=== PATIENT | female | born 1985 | race Caucasian/White ===

== ENCOUNTER 2017-03-17 05:14 | Emergency (ER) | payer OTHER ==
[~2017-03-17] VITALS: Ht 167.6 cm; Wt 63.5 kg
--- NOTE | 2017-03-17 05:20 | NUR ---
TO ROOM 3 FOR ER EVAL
[2017-03-17] MEDS ORDERED: SULFAMETH/TRIMETH 800/160 MG TABLET PO ONE (05:30)
--- NOTE | 2017-03-17 05:38 | NUR ---
PT Patient discharged to home in stable conditon. Written and verbal after care instructions given. Patient verbalizes understanding of instructions.RX GIVEN
[2017-03-17] MEDS ORDERED: SULFAMETH/TRIMETH 800/160 MG TABLET ONE (05:40)
== END 2017-03-17 05:38 | disposition home or self-care (01) ==
LOC: ER 05:16
DX: L03.113 Cellulitis of right upper limb (principal); F11.10 Opioid abuse, uncomplicated
CPT/HCPCS: A4663

== ENCOUNTER 2017-05-24 19:30 | Emergency (ER) | payer OTHER ==
[~2017-05-24] VITALS: Ht 167.6 cm; Wt 54.4 kg
[2017-05-24] MEDS: PROCHLORPERAZINE EDISYLATE 10 MG/2 ML VIAL IM ONE (19:44)
[2017-05-24] MEDS: SULFAMETH/TRIMETH 800/160 MG TABLET PO ONE (19:45)
--- NOTE | 2017-05-24 19:45 | NUR ---
DR. VIDAL AT BEDSIDE. PATIENT HANDCUFFED TO BED, [employer] AT BEDSIDE.
[2017-05-24] MEDS ORDERED: SULFAMETH/TRIMETH 800/160 MG TABLET ONE (19:53)
[2017-05-24] MEDS ORDERED: PROCHLORPERAZINE EDISYLATE 10 MG/2 ML VIAL ONE (19:53)
[2017-05-24 20:09] LABS: BASOPHILS % (AUTO) 0.5 % (0.0-2.0); EOSINOPHILS # (AUTO) 0.2 K/uL (0.0-0.7); EOSINOPHILS % (AUTO) 2.5 % (0.0-7.0); HEMATOCRIT 36.9 % (37-47); HEMOGLOBIN 12.3 G/DL (12.0-16.0); LYMPHOCYTES # (AUTO) 1.7 K/UL (0.8-4.8); LYMPHOCYTES % (AUTO) 16.9 % (20.5-51.5); MEAN CORPUSCULAR HEMOGLOBIN 27.9 UUG (27.0-31.0); MEAN CORPUSCULAR HGB CONC 33 g/dL (32.0-37.0); MEAN CORPUSCULAR VOLUME 83.5 FL (81.0-99.0); MONOCYTES # (AUTO) 0.7 K/UL (0.1-1.30); MONOCYTES % (AUTO) 7.5 % (0.0-11.0); NEUTROPHILS # (AUTO) 7.3 K/UL (1.8-8.9); NEUTROPHILS % (AUTO) 72.6 % (38.5-71.5); PLATELET COUNT (AUTO) 321 K/UL (150-450); RED BLOOD CELL COUNT(AUTO) 4.42 MIL/UL (4.2-5.4); WHITE BLOOD COUNT (AUTO) 9.9 K/UL (4.0-11.2)
[2017-05-24 20:16] LABS: BILIRUBIN,TOTAL 0.3 mg/dL (0.2-1.0); CREATININE 0.8 mg/dL (0.6-1.3); POTASSIUM 3.6 mmol/L (3.5-5.1); TOTAL PROTEIN, SERUM 8.2 g/dL (6.4-8.2)
[2017-05-24 20:39] VITALS: BP 116/54
--- NOTE | 2017-05-24 20:40 | NUR ---
Patient discharged to home in stable conditon. Written and verbal after care instructions given. Patient verbalizes understanding of instructions. PATIENT LEFT WITH STABLE GAIT, PATIENT IS NOT PLACED UNDER ARREST AND LEFT ER IN STABLE CONDITION.
== END 2017-05-24 20:40 | disposition home or self-care (01) ==
LOC: ER 19:33
DX: F11.10 Opioid abuse, uncomplicated (principal); L98.499 Non-pressure chronic ulcer of skin of other sites with unspecified severity; L03.114 Cellulitis of left upper limb; L03.113 Cellulitis of right upper limb; F15.10 Other stimulant abuse, uncomplicated; Z86.19 Personal history of other infectious and parasitic diseases
CPT/HCPCS: 36415; 85025; A4663; J0780